=== PATIENT | male | born 1950 | race Caucasian/White ===

== ENCOUNTER 2023-12-02 10:16 | Emergency (ER) | payer OTHER, MEDICARE ==
[2023-12-02 11:26] LABS: BASOPHILS ABSOLUTE AUTO 0.03 10^3/uL (0.00-0.50); BASOPHILS PERCENT AUTO 0.4 % (0-1); EOSINOPHILS ABSOLUTE AUTO 0.19 10^3/uL (0.00-1.50); EOSINOPHILS PERCENT AUTO 2.6 % (0-6); HEMATOCRIT 48.5 % (42.0-52.0); IMMATURE GRAN ABSOLUTE AUTO 0.01 10^3/uL (0.00-0.49); IMMATURE GRAN PERCENT AUTO 0.1 % (0.0-4.9); LYMPHOCYTES ABSOLUTE AUTO 1.22 10^3/uL (0.60-5.00); LYMPHOCYTES PERCENT AUTO 16.8 % (24-44); MEAN CORPUSCULAR HEMOGLOBIN 30.7 pg (27.0-32.0); MEAN CORPUSCULAR HGB CONC 35.1 g/dL (32.0-36.0); MEAN CORPUSCULAR VOLUME 87.7 fL (83.0-97.0); MONOCYTES ABSOLUTE AUTO 0.71 10^3/uL (0.00-1.50); MONOCYTES PERCENT AUTO 9.8 % (0-10); NEUTROPHILS ABSOLUTE AUTO 5.11 x10^3/uL (1.80-8.00); NEUTROPHILS PERCENT AUTO 70.3 % (41-71); PLATELET COUNT,PLT 146 10^3/uL (150-400); RED BLOOD CELL COUNT 5.53 x10^6/uL (4.50-6.00); WHITE BLOOD CELL COUNT,WBC 7.3 10^3/uL (4.0-11.0)
[2023-12-02 11:39] LABS: ALBUMIN 3.8 g/dL (3.4-5.0); BILIRUBIN TOTAL 0.7 mg/dL (0.0-1.0); CALCIUM 8.5 mg/dL (8.4-10.1); CREATININE 1.1 mg/dL (0.7-1.3); EST CRCL DRUG DOSING (CG) 56.14 mL/min; MAGNESIUM 2.2 mg/dL (1.8-2.4); POTASSIUM,K 3.8 mEq/L (3.5-5.0); PROTEIN TOTAL,TP 7.2 g/dL (6.4-8.2)
[2023-12-02 13:26] VITALS: BP 127/55; PULSE 59
== END 2023-12-02 13:24 | disposition home or self-care (01) ==
LOC: CC.ED 10:16
DX: S40.811A Abrasion of right upper arm, initial encounter (principal); S40.812A Abrasion of left upper arm, initial encounter; R51.9 Headache, unspecified; Z88.8 Allergy status to other drugs, medicaments and biological substances; Z87.891 Personal history of nicotine dependence; Z79.899 Other long term (current) drug therapy; Z79.82 Long term (current) use of aspirin; W17.89XA Other fall from one level to another, initial encounter; Y93.01 Activity, walking, marching and hiking
CPT/HCPCS: 36415; 70450; 80053; 83735; 85025; 99283; 99284